=== PATIENT | female | born 1955 | race Caucasian/White ===

== ENCOUNTER 2016-04-01 08:59 | Inpatient (IN) | payer BC ==
[~2016-04-01] VITALS: Ht 160 cm; Wt 72.5 kg
[~2016-04-01 08:59] MED LIST: ATIVAN0.5 MG PO; Aspirin E.C. PO; Ativan PO; Levothroid,Synthroid PO; Motrin PO; Percocet 5/325,Endoc PO; ST. JOHN'S WOR300 MG PO; SYNTHROID112 MCG PO; Vitamin D PO
[2016-04-01 11:53] VITALS: BP 102/60
[2016-04-01 15:52] VITALS: BP 146/78
[2016-04-01 18:19] LABS: HEMATOCRIT 39.1 % (36.0-46.0); MCH 30.9 PG (29.0-34.0); MCHC 34.3 G/DL (30.0-36.0); MCV 90.1 FL (83-99); PLATELET COUNT 199 K/uL (156-360); RBC DIS.WIDTH-CV 12.3 % (11.8-14.6); RBC DIS.WIDTH-SD 40.7 % (39-53); RED BLOOD COUNT 4.34 M/uL (3.80-5.20)
[2016-04-01 18:41] LABS: ANION GAP 6 MEQ/L (2-14); CHLORIDE 103 MEQ/L (99-109); GFR ESTIMATE (CALCULATED) > 59 mL/min/; GLUCOSE 153 mg/dL (70-99); POTASSIUM 4.4 MEQ/L (3.7-5.4); SAMPLE HEMOLYSIS CHECK 2; SAMPLE ICTERIC CHECK 0; SAMPLE LIPEMIA CHECK 0; SODIUM 137 MEQ/L (136-147); UREA NITROGEN (BUN) 11 mg/dL (9-23)
[2016-04-01 19:57] VITALS: BP 128/70
[2016-04-01 22:50] VITALS: BP 126/68
[2016-04-02 06:47] LABS: HEMATOCRIT 37.4 % (36.0-46.0); MCH 30.3 PG (29.0-34.0); MCV 89.3 FL (83-99); PLATELET COUNT 217 K/uL (156-360); RBC DIS.WIDTH-CV 12.5 % (11.8-14.6); RBC DIS.WIDTH-SD 40.3 % (39-53); RED BLOOD COUNT 4.19 M/uL (3.80-5.20); WHITE BLOOD COUNT 15.1 K/uL (4.1-10.2)
[2016-04-02 07:02] VITALS: BP 103/56
[2016-04-02 08:29] LABS: ANION GAP 7 MEQ/L (2-14); CHLORIDE 104 MEQ/L (99-109); GFR ESTIMATE (CALCULATED) > 59 mL/min/; GLUCOSE 125 mg/dL (70-99); POTASSIUM 3.8 MEQ/L (3.7-5.4); SAMPLE HEMOLYSIS CHECK 0; SAMPLE ICTERIC CHECK 0; SAMPLE LIPEMIA CHECK 0; SODIUM 139 MEQ/L (136-147); UREA NITROGEN (BUN) 8 mg/dL (9-23)
[2016-04-02 12:04] VITALS: BP 118/61
[2016-04-02 13:45] VITALS: BP 125/58
[2016-04-02] MEDS ORDERED: TRAMADOL HCL50 MG PO (13:52)
== END 2016-04-02 14:32 | disposition home or self-care (01) | DRG 983 ==
LOC: 2SOUTH 08:59 → 2EAST 10:58 → 2SOUTH 10:58 → SDC 12:04 → EDSTATUS 12:13 → 2SOUTH 12:33 → SDC 14:23 → 2EAST 15:39
PROVIDERS: Obstetrics & Gynecology Gynecologic Oncology
DX: R19.09 Other intra-abdominal and pelvic swelling, mass and lump (principal); K66.0 Peritoneal adhesions (postprocedural) (postinfection); N28.9 Disorder of kidney and ureter, unspecified
CPT/HCPCS: 36415; 80048; 85027; 86850; 86900; 86901; 86920; 88305; C1758; J0330; J0690; J1100; J1170; J1885; J2270; J2405; J2710; J2765; J3010